=== PATIENT | male | born 1995 | race Hispanic/Latino ===

== ENCOUNTER 2021-05-14 19:10 | Emergency (ER) | payer BC ==
[~2021-05-14] VITALS: Ht 175.3 cm; Wt 104.3 kg
[2021-05-14] MEDS ORDERED: ACETAMINOPHEN 325 MG/10 ML UDC ONE (20:41)
== END 2021-05-15 | disposition home or self-care (01) ==
LOC: FSED 20:11
DX: R07.89 Other chest pain (principal); M54.6 Pain in thoracic spine; V49.59XA Passenger injured in collision with other motor vehicles in traffic accident, initial encounter
CPT/HCPCS: 71046; 99283